=== PATIENT | male | born 1960 | race Caucasian/White ===

== ENCOUNTER 2022-05-18 09:20 | Day surgery (SDC) | payer BC ==
[2022-05-16 16:12] LABS: SARS-CoV-2 Antigen Rapid Res Negative (Negative)
[2022-05-16 16:14] LABS: Absolute Lymphocytes (CBC) 2.2 K/uL (0.7-4.9); Hematocrit 39.6 % (39.6-49.0); Lymphocytes % 30.5 % (15.3-44.8); MPV 7.2 fL (7.6-11.3); RBC Red Blood Cell Count 4.12 M/uL (4.33-5.43)
--- NOTE | 2022-05-17 13:05 | EKG ---
Test Date: 2022-05-16 Test Time: 15:41:36 Drop Wirer: BOB MEASUREMENT RESULTS: Intervals: Rate: 50 [place]: 154 QRSD: 88 QT: 378 QTc: 344 [place]: P: 55 [place]: 154 QRS: 49 T: 52 INTERPRETIVE STATEMENTS: Sinus bradycardia Otherwise normal ECG No previous ECG available for comparison Electronically Signed On 05-17-22 13:04:18 CDT by Leonardo Willis
[2022-05-18] MEDS ORDERED: Ringers Lactate 1,000 ML IV ONE ×2 (10:02→14:04)
[2022-05-18] MEDS ORDERED: CEFAZOLIN 2 GM IN 0.9% NACL 2 GM/100 ML BAG ONE (10:02)
[2022-05-18] MEDS ORDERED: CELECOXIB 100 MG CAPSULE ONE (10:15)
[2022-05-18] MEDS ORDERED: ACETAMINOPHEN 500 MG TAB ONE (10:16)
[2022-05-18] MEDS ORDERED: propofoL 200 MG/20 ML VIAL IV ONE (11:51)
[2022-05-18] MEDS ORDERED: FENTANYL CITR 100 MCG/2 ML ONE ×2 (11:51→13:35)
[2022-05-18] MEDS ORDERED: LIDOCAINE 1% MPF 5 ML VIAL ONE (11:51)
[2022-05-18] MEDS ORDERED: MIDAZOLAM HCL 2 MG/2 ML INJ ONE (11:51)
[2022-05-18] MEDS ORDERED: BUPIVACAINE 0.25% PF 10 ML VIAL ONE (11:59)
[2022-05-18] MEDS ORDERED: KETOROLAC 30 MG/ML INJ ONE ×2 (12:06→12:27)
[2022-05-18] MEDS ORDERED: ONDANSETRON 4 MG/2 ML VIAL ONE (12:27)
[2022-05-18] MEDS ORDERED: dexAMETHasone 10 MG/ML VIAL ONE (12:27)
[2022-05-18] MEDS ORDERED: EPHEDRINE SULF 50 MG/ML VIAL ONE (12:50)
--- NOTE | 2022-05-18 13:47 | P.OP ---
Preoperative diagnosis: LEFT incarcerated inguinal hernia Postoperative diagnosis: LEFT incarcerated inguinal hernia Primary procedure: Open LEFT inguinal hernia repair with mesh Anesthesia: GETA + Local Estimated blood loss: <5cc Specimen: cord lipoma, hernia sack Findings: incarcerated adipose, cord lipoma, indirect inguinal hernia Complications: None Implants: Bard Perfix Medium plug and patch Transferred to: Recovery Room Condition: Good
[2022-05-18] MEDS ORDERED: HYDROCODONE/APAP 7.5/325 MG TAB PO ONE (15:18)
[2022-05-18] MEDS ORDERED: HYDROCODONE/APAP 7.5/325 MG TAB ONE (15:38)
[2022-05-18 16:09] VITALS: BP 124/50; TEMP 96.6; O2SAT 100
--- NOTE | 2022-05-18 23:38 | OP ---
Date of Procedure: 05/18/2022 Surgeon: Hawk Zavala MD, Preoperative Diagnosis: Left incarcerated inguinal hernia. Postoperative Diagnosis: Left incarcerated inguinal hernia. Procedure Performed: Open left inguinal hernia repair with mesh. Anesthesia: General endotracheal plus 0.5% Marcaine with epinephrine. Estimated Blood Loss: 5 cc. Specimens: 1.Cord lipoma. 2.Hernia sac. Findings: 1.Incarcerated adipose tissue. 2.Cord lipoma. 3.Indirect inguinal hernia. 4.External oblique aponeurosis, very thin and alveolar in consistency. Complications: None. Implants: Bard PerFix Medium Plug and Patch hernia repair system. Disposition: The patient was transferred to recovery room in good condition. Procedure In Detail: After informed consent was obtained, the patient was brought to the operating r oom and prepped and draped in the usual sterile fashion. After adequate anesthesia was achieved, an area of the left inguinal area was anesthetized with 0.5% Marcaine and sharply incised with a 15 blad e down to subcutaneous tissues. Dissection was continued down to subcutaneous tissues. I dissected the Camper's fat and Kendra fascia to expose the external oblique aponeurosis. This was swept back a nd visualized quite well. The tissue was thin and friable and easily transparent through the majorit y of the external oblique aponeurosis. This was opened sharply with a 15 blade and then opened in it s entirety with Metzenbaum scissors, protecting the ilioinguinal and iliohypogastric nerve throughout . The dissection was continued down to encircle spermatic cord structures, which were found to be in close apposition to indirect inguinal hernia sac on the medial aspect. The spermatic cord structure s were encircled. The hernia sac was dissected free from the medial aspect of the spermatic cord str uctures and a cord lipoma was appreciated, which was quite large emanating from the proximal aspect n ear the deep inguinal ring. The spermatic cord was then retracted gently and the cord lipoma was dis sected circumferentially around until a stalk was appreciated. At this point, this was dissected katie e and tied off using a 2-0 silk tie and ligated using electrocautery and sent off for pathologic exam ination. I then proceeded to remove the hernia sac from the spermatic cord structures on the medial aspect, down to the deep inguinal ring. At this point, the hernia sac was opened, ligated at this po int and sent off for pathologic examination. The hernia sac and the preperitoneal fat were reduced t o the normal anatomic position. I then closed the hernia defect using a running 2-0 Vicryl suture. At this point, I imbricated the sac and placed in the preperitoneal position with a finger sweep and then placed a medium Bard PerFix Plug into the preperitoneal space behind the previously ligated francisca ia sac. At this point, I secured it to the shelving edge and 3 securing stitches circumferentially a round using 2-0 PDS suture. At this point, the patch was sized appropriately and secured to the pubi c tubercle on the medial aspect and on the medial and lateral shelving edges of the internal oblique aponeurosis on the medial aspect and externally on the undersurface of the defect aspect of the ingui nal tissue. At this point, the deep ring was reconstituted after the mesh was trimmed appropriately. The testicle was reduced in normal anatomic position without tension and the area was copiously irr igated. The residual external oblique aponeurosis was closed using a running 3-0 Vicryl suture prote cting the ilioinguinal and iliohypogastric nerves. At this point, the area was irrigated once again. Camper's fat and Kendra's fascia were closed en bloc using 3-0 Vicryl suture, deep dermal plane was closed using 3-0 Vicryl suture, and the skin was then closed with a 4-0 Monocryl in a running fashio n. Dermabond was placed over top. The patient tolerated the procedure without any complication and was transferred back in good condition. All counts were correct at the end of the case. ALISA/PIAL Voice ID: [id number] Report ID: [id number]
== END 2022-05-18 15:55 | disposition home or self-care (01) ==
LOC: OR 09:20
PROVIDERS: ATTEND Surgery
PROC: 0YU60JZ Supplement Left Inguinal Region with Synthetic Substitute, Open Approach (ICD-10-PCS; principal; 2022-05-18 11:00)
DX: K40.30 Unilateral inguinal hernia, with obstruction, without gangrene, not specified as recurrent (principal); Z20.822 Contact with and (suspected) exposure to COVID-19
CPT/HCPCS: 93005; 85025; 80048; 36415; 88302; 87811; 49507; J2704; J2250; J3010 ×2; J1100; J0690; J7120 ×2; J2405